=== PATIENT | female | born 1965 | race Caucasian/White ===

== ENCOUNTER 2023-07-06 14:44 | Outpatient (CLI) | payer BC, SELFPAY ==
--- NOTE | 2023-07-06 15:00 | CRLHL7_ITS ---
For Patients: As a result of the Century Cures Act, medical imaging exams and procedure reports are released immediately into your electronic medical record. You may view this report before your referring provider. If you have questions, please contact your health care provider. BILATERAL SCREENING MAMMOGRAM WITH COMPUTER-AIDED DETECTION AND TOMOSYNTHESIS TECHNIQUE: CC and MLO views were obtained. These mammographic images have been obtained using full-field digital technique. These mammographic images were interpreted with the benefit of computer-aided detection. Breast Tomosynthesis was used in this interpretation. COMPARISON FILM: 01/01/21, 12/20/18. FINDINGS: The breasts are heterogeneously dense, which may obscure small masses IMPRESSION: There is no radiographic evidence for malignancy. ASSESSMENT: BI-RADS Category 1: Negative RECOMMENDATION: Routine screening mammogram in 1 year. A lay language report of this examination will be provided to the patient. Rakan Moya M.D. Diagnostic/Nuclear Medicine Radiologist [email or web address] KHADRA/Dictated by: Rakan Moya MD @ 07/07/2023 9:08:00 AM (Electronically Signed)
== END 2023-07-06 14:45 | disposition home or self-care (01) ==
PROVIDERS: PCP Physician Assistant Medical; Visit Provider Physician Assistant Medical
DX: Z12.31 Encounter for screening mammogram for malignant neoplasm of breast (principal); R92.2 Inconclusive mammogram
CPT/HCPCS: 77063; 77067

== ENCOUNTER 2024-12-26 07:17 | Outpatient (CLI) | payer BC, SELFPAY ==
--- NOTE | 2024-12-26 07:51 | P.ANES_ITS ---
Anesthesia Charges Start Date/Time Anesthesia Start Date: 12/26/24 Anesthesia Start Time: 07:52 Stop Date/Time Anesthesia Stop Date: 12/26/24 Anesthesia Stop Time: 08:17 Coding CPT Codes CPT Codes: KEYUR LWR INTST SCR COLSC - 70101 ([id number]) P1 - NORMAL HEALTHY PATIENT, QK - PUMP TESTER 2-4 CNCRNT ANES PROC, QX - GEOLOGY ASSOCIATE SVC W/ MED DIRECTION
--- NOTE | 2024-12-26 07:51 | W.ANESCHARGE ---
Anesthesia Charges Start Date/Time Anesthesia Start Date: 12/26/24 Anesthesia Start Time: 07:52 Stop Date/Time Anesthesia Stop Date: 12/26/24 Anesthesia Stop Time: 08:17 Coding CPT Codes CPT Codes: KEYUR LWR INTST SCR COLSC - 21768 ([id number]) P1 - NORMAL HEALTHY PATIENT, QK - ICE HOCKEY COACH 2-4 CNCRNT ANES PROC, QX - STEEL SAMPLER SVC W/ MED DIRECTION
--- NOTE | 2024-12-26 08:35 | P.ANES_ITS ---
Anesthesia Charges Start Date/Time Anesthesia Start Date: 12/26/24 Anesthesia Start Time: 07:52 Stop Date/Time Anesthesia Stop Date: 12/26/24 Anesthesia Stop Time: 08:17 Coding CPT Codes CPT Codes: KEYUR LWR INTST SCR COLSC - 51995 ([id number]) P1 - NORMAL HEALTHY PATIENT, QX - FELT HAT STEAMER SVSourav W/ MED DIRECTION, QK - LEAD MEDICAL TECHNOLOGIST 2-4 CNCRNT ANEKyle PROC
--- NOTE | 2024-12-26 08:35 | W.ANESCHARGE ---
Anesthesia Charges Start Date/Time Anesthesia Start Date: 12/26/24 Anesthesia Start Time: 07:52 Stop Date/Time Anesthesia Stop Date: 12/26/24 Anesthesia Stop Time: 08:17 Coding CPT Codes CPT Codes: KYEUR LWR INTST SCR COLSC - 34010 ([id number]) P1 - NORMAL HEALTHY PATIENT, QX - BEEF TRIMMER SVSourav W/ MED DIRECTION, QK - TURF MANAGER 2-4 CNCRNT ANEKyle PROC
--- OUTSIDE RECORDS SUMMARY | 2024-12-27 02:20 | XMS_ITS | Clinical Summary ---
Author Organization [facility] Address [address] [place] [address]. [place] [address] Care Team Providers Care Gasket Maker Name Role Phone Neri Marion MD Primary Care Provider + Allergies Active Allergy Reactions Criticality Noted Date Comments Sulfa Antibiotics 04/10/2018 Medications No known medications Family History Medical History Relation Comments C.A.D. 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 Gender Identity Not on file Sexual Orientation Not on file Last Filed Vital Signs Vital Sign Reading Time Taken Comments Blood Pressure 123/76 04/10/2018 10:00 AM CDT Pulse 73 11/20/2004 9:00 AM CDT Temperature 35.9 C (96.6 F) 04/10/2018 6:54 AM CDT Respiratory Rate 18 04/10/2018 9:01 AM CDT Oxygen Saturation 96% 04/10/2018 10: 00 AM CDT Inhaled Oxygen Concentration - - Weight 50.7 kg (111 lb 12.4 oz) 018 6:54 AM CDT Height 149.9 cm (4' 11) 11/20/2004 9:00 AM CDT Body Mass Index - - Plan of Treatment Not on file Insurance NONE (Work) [id number] [address] [facility] [place] [id number] [place] Care Teams Gasket Maker Relationship Specialty Start Date End Date Neri Marion MD PCP - General 04/10/18
--- OUTSIDE RECORDS SUMMARY | 2024-12-27 02:20 | XMS_ITS | Clinical Summary ---
Author Organization [facility] Address [address] [place] [address] Care Team Providers Care Pretzel Twister Name Role Phone Needs Pcp, Assignment Primary Care Provider Source Comments You are receiving this document as you are listed as the primary care provider,follow-up provider, or the patient has been referred to you for consultation.This is in compliance with the Medicare and[facility] EHR Incentive Program,which states Providers who transition their patient to another setting of careor provider of care or refers their patient to another provider of care shouldprovide summary care record for each transition of care or referral. [facility] Allergies Active Allergy Reactions Criticality Noted Date Comments Sulfa Antibiotics 04/04/2005 PN: LW Reaction: Rash, Generalized Medications Multiple Vitamins-Minerals (MULTIVITAMIN OR) Take 1 tablet by mouth daily (every 24 hours). 100 13 10/10/19 06 Active citalopram (CELEXA) 20 MG tablet 1 po daily 90 Tablet 3 01/12/20 19 Active fluticasone (FLONASE) 50 MCG/ACT nasal solution Place 1-2 Sprays into both nostrils daily. 16 g 1 01/12/20 19 Active LORazepam (ATIVAN) 1 MG tablet Take 1 Tablet by mouth daily at bedtime. 90 Tablet 01/12/20 19 Active clindamycin (CLEOCIN T) 1 % gel Apply topically two times a day. 60 g 11/07/19 20 Active Additional Information Patient not taking.Reported on 05/02/2021 clindamycin (CLINDAGEL) 1 % gelIndications:Halie vera general medical examination at health care facility Apply 1 Application topically two times a day. 60 g 11/07/19 20 Active Additional Information Patient not taking.Reported on 05/02/2021 diclofenac (VOLTAREN) 1 % gelIndications:Art hralgia, unspecified joint,Primary osteoarthritis of both hands,Primary osteoarthritis involving multiple joints,Chronic pain of left knee Apply 4 g to skin 4 times a day. 300 Each 11 05/02/20 Active Active Problems Problem Noted Date Diagnosed Date Anxiety 02/15/2013 Depression 02/15/2013 Insomnia 02/15/2013 Gastritis and gastroduodenitis 09/08/2005 Overview (02/18/2017): LW Onset: ; Gastritis Resolved Problems Problem Noted Date Diagnosed Date Resolved Date Pelvic pain in female 01/10/20112013 Infertility, female, primary 01/10/2011 12/30/2017 Immunizations Immunization Administration Dates Next Due TDAP (BOOSTRIX) 07/11/2014 Td 08/14/2004 Family History Medical History Relation Name Comments Cancer, Breast Mother High Cholesterol Mother Cancer Maternal Grandfather Alzheimer's Maternal Grandmother Dementia Maternal Grandmother Heart Disease Maternal Grandmother Cancer Paternal Grandfather Cancer, Breast Sister 1 Hypertension Sister 1 Cancer, Breast Sister 2 BRCA 1/2 Negative Family History Cancer, Colon Negative Family History Cancer, Endometrial Negative Family History Cancer, Ovary Negative Family History Edil Syndrome Negative Family History Diethylstilbestrol Exposure Negative Family History Li-Fraumeni Syndrome Negative Family History Relation Name Status Comments Father Mother Alive Brother Alive Maternal Grandfather Maternal Grandmother Paternal Grandfather Paternal Grandmother Sister 1 Alive Sister 2 Alive Social History Tobacco Use Types Packs/Day Years Used Date Smoking Tobacco: Never Smokeless Tobacco: Never Tobacco Cessation:Counseling Given: No Alcohol Use Standard Drinks/Week Comments Yes 1 (1 standard drink = 0.6 oz pure alcohol) Alcoholic Drinks/day: Amount:1-2 drinks; Freq:2-4/Month ; Comments No Sex and Gender Information Value Date Recorded Sex Assigned at Not on file Legal Sex Female 4:28 AM CDT Gender Identity Not on file Sexual Orientation Not on file 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 file Not on file Not on file Last Filed Vital Signs Vital Sign Reading Time Taken Comments Blood Pressure 96/66 01/11/2019 9:16 AM CDT Pulse 80 01/11/2019 9:16 AM CDT Temperature 36.8 C (98.2 F) 04/16/2010 5:15 PM CDT C: 36.8 C Respiratory Rate 15 04/22/2018 2:55 PM CDT Oxygen Saturation 100% 04/12/2010 12: 20 PM CDT Inhaled Oxygen Concentration - - Weight 50.5 kg (111 lb 6.4 oz) 01/11/2019 9:16 A M CDT Height 148.6 cm (4' 10.5) 01/11/2019 9:16 AM CD T Body Mass Index 22.89 01/11/2019 9:16 AM CDT Plan of Treatment Health Maintenance Due Date Last Done Comments Hep C Screening (Preventive Services) 1965 HIV Screening (Preventive Services) 1980 Colon Cancer Screening Plan Due 12/04/2005 12/03/2005 Pneumococcal Vaccine 50+ Yrs (1 of 1 - PCV) 2014 Zoster/Shingles Vaccine (1 of 2) 2014 Cholesterol 12/27/2014 12/27/2009, 07/30, 04/13/1998 Mammogram 12/21/2019 12/20/2018, 07/30, 01/31/2016, Additional history exists Adult Preventive Visit 01/12/2020 9, 12/28/2017, 10/21/2016 Cervical Cancer Screening 01/12/20242018, 01/11/2019, 05/17/2015, Additional history exists COVID-19 Vaccine ( - season) 2024 09/20/2020, 08/23/2020 DTaP/Tdap/Td Vaccine (2 - Tdap) 07/11/2024 07/11/2014, 08/14/2004 Influenza Vaccine (Season Ended) 2025 02/18/2018, 03/11/2013, 03/11/2013, Additional history exists RSV Vaccine (1 - 1-dose 75+ series) 11/08/2039 HepA Vaccine Aged Out No longer eligi ble based on patient's age to complete this topic HepB Vaccine Aged Out No longer eligi ble based on patient's age to complete this topic Hib Vaccine Aged Out No longer eligi ble based on patient's age to complete this topic IPV (Polio) Vaccine Aged Out No longe r eligible based on patient's age to complete this topic MCV4 Vaccine Aged Out No longer eligi ble based on patient's age to complete this topic Meningococcal B Vaccine Aged Out No l onger eligible based on patient's age to complete this topic Procedures Procedure Name Priority Date/Time Associated Diagnosis Comments CYTOLOGY (PAP) Routine 01/11/2019 9:52 AM CDT Pap smear for cervical cancer screening MM MAMMOGRAM SCREENING BILAT W CAD Routine 12/20/2018 3:36 PM CDT Visit for screening mammogram LIPID PANEL & DIRECT LDL (IF NEEDED) Routine 12/27/2009 11:47 AM CDT ENDOSCOPY, COLON, SCREENING/DIAGNOSTI C Routine 12/03/2005 7:01 PM CDT from Last 3 Months or Most Recently Relevant to Health Maintenance Results * PAP Test (01/11/2019 9:52 AM CDT) Case Report Pap Case: [id number] Authorizing Provider: Nilda Rendon, Collected: 01/11/2019 09:52 AM [facility] MARIE Ordering Location: [facility] Received: 01/11/2019 10:21 AM Services-[facility] First Screen: Carley Teresa CT (ASCP) Specimen: Pap Test, Routine, Cervix/Endocervix 01/14/2019 6:48 AM CDT [facility] Pap Specimen Adequacy Satisfactory for evaluation, endocervical/judd sformation zone component present. 01/14/2019 6:48 AM CDT [facility] Pap Interpretation Negative for intraepithelial lesion or malignancy (NILM). 01/14/2019 6:48 AM CDT [facility] at 0648 CDT Gross Description The specimen is received in SurePath fixative and properly labeled. 1 Pap-stained SurePath slide is prepared. 01/14/2019 6:48 AM CDT [facility] Pap Disclaimer The Pap test is a screening test designed to aid in the detection of cervical cancer and its precursor lesions. It is not a diagnostic procedure and should not be used as the sole means of detecting cervical cancer. Both false-positive and false-negative reports may occur. 01/14/2019 6:48 AM CDT [facility] Embedded Images 9 6:48 AM CDT [facility] Other Specimen Type ENTIRE ENDOCERVIX / Unknown 01/11/2019 9:52 AM CDT 01/11/2019 10:21 AM CDT Comment:LMP: Patient's last menstrual period was 05/31/2014. Nilda Rendon APRN, [facility] Fi nal Result [facility] [address] * MM Mammogram Screening Bilat W CAD (12/20/2018 3:36 PM CDT) Anatomical Region Laterality Modality Breast Bilateral Mammography Impressions 12/20/2018 3:49 PM CDT : ACR BI-RADS Category 1: Negative RECOMMENDATION: Follow Up Imaging in 12 months - Bilateral The results and recommendations of this examination will be communicated to the patient. Narrative 12/20/2018 3:49 PM CDT MM MAMMOGRAM SCREENING BILAT W CAD performed on 12/20/18 Compared to: 08/10/2017 MM Mammogram Screening Bilat W CAD, 01/31/2016 MM Mammogram Screening Bilat W CAD, and 07/12/2014 MM Mammogram Screening Bilat W CAD FINDINGS: Bilateral screening mammogram was performed with the assistance of Computer-Aided Detection. The breasts are heterogeneously dense, which may obscure small masses. There is no radiographic evidence of malignancy. us Nilda Rendon APRN, [facility] Fi nal Result * Lipid Panel and Direct LDL(If Needed) (12/27/2009 11:47 AM CDT) Cholesterol 183 0 - 200 mg/dL HP CONVERSION Triglycerides 44 0 - 149 mg/dL HP CONVERSION HDL Cholesterol 62 >39 mg/dL HP CONVERSION Cholesterol/HDL Ratio Screen 3.0 No normal range HP CONVERSION LDL Calculated 112 19 - 130 mg/dL HP CONVERSION Hours Fasting 12 No normal range HP CONVERSION 12/27/2009 11:4 7 AM CDT Nilda Rendon APRN, ROOFING [employer]EM[employer] LAB_1 Fi nal Result HP CONVERSION * Endoscopy, colon, diagnostic (12/03/2005 7:01 PM CDT) Anatomical Region Laterality Modality Other us User Conversion ET GI PROCEDURE ORDERABLES Final Result from Last 3 Months or Most Recently Relevant to Health Maintenance Insurance [facility] Care Teams Pretzel Twister Relationship Specialty Start Date End Date Needs Pcp, [place] [address] PCP - General 07/10/14
== END 2024-12-26 07:18 | disposition home or self-care (01) ==
LOC: OP CLINIC 07:18
PROVIDERS: PCP Physician Assistant Medical; Visit Provider Internal Medicine
DX: Z12.11 Encounter for screening for malignant neoplasm of colon (principal); Z86.0100 Personal history of colon polyps, unspecified
CPT/HCPCS: 00812; 45378; J2704